=== PATIENT | female | born 1965 | race Caucasian/White ===

== ENCOUNTER 2018-09-16 01:16 | Outpatient (CLI) | payer BC, SELFPAY ==
--- NOTE | 2018-09-16 08:30 | DI.MAMMO_ITS ---
SYMPTOM/DIAGNOSIS: SCREENING, Z12.31 MAMMOGRAMS: Mammograms were interpreted according to the usual protocol including computer analysis with CAD system, tomosynthesis and C view imaging. The breast tissue is of moderate radiodensity. There is no evidence of a dominant mass. There are no suspicious calcifications and nothing specific to suggest a malignancy. There has been no significant interval change when compared with 05/26/07. Breast density, Category B. SA ASSESSMENT OF FINDINGS: Negative. Category 1. Patient will receive a letter notifying them of these results. BI-RADS category B. There are scattered areas of fibroglandular density. ADDENDUM: The patient's prior examination from 05/26/07 was retrieved. Since the prior study, there has been considerable fatty replacement in the breasts. There is no evidence on the present examination of a malignancy. Category I. Follow up surveillance with routine annual screening mammography is recommended.
[2018-09-16 09:39] LABS: Anion Gap 8.3 mmol/L (3-11); BUN 20 mg/dL (7-18); CO2 29.7 mmol/L (21.0-32.0); CREATININE 0.93 mg/dL (0.55-1.02); Calcium 9.4 mg/dL (8.5-10.1); Chloride 105 mmol/L (98-107); Cholesterol 189 mg/dL (50-200); Glucose 91 mg/dL (70-100); HDL Cholesterol 77 mg/dL (40-60); LDL CHOLESTEROL 100 mg/dL (<100); Potassium 4.5 mmol/L (3.5-5.1); Sodium 143 mmol/L (136-145); Triglyceride 55 mg/dL (30-150)
[2018-09-16 09:55] LABS: FREE T4 1.04 ng/dL (0.76-1.46)
== END 2018-09-16 01:36 ==
PROVIDERS: PCP Nurse Practitioner Family; Visit Provider Nurse Practitioner Family
DX: Z12.31 Encounter for screening mammogram for malignant neoplasm of breast (principal); E78.5 Hyperlipidemia, unspecified
CPT/HCPCS: 36415; 77063; 77067; 80048; 80061; 83721; 83036; 84439; 84443

== ENCOUNTER 2024-08-25 10:42 | Outpatient (REF) | payer OTHER, SELFPAY ==
[2024-08-25 15:36] LABS: Abs Immature Grans 0.01 10^3/uL (0.0-0.06); Absolute Basophil Count 0.03 10^3/uL (0.0-0.2); Absolute Eosinophil Count 0.13 10^3/uL (0.0-0.7); Absolute Lymphocyte Count 2.09 10^3/uL (1.2-3.4); Absolute Monocyte Count 0.41 10^3/uL (0.1-0.8); Absolute Neutrophil Count 3.53 10^3/uL (1.2-6.7); Basophils % 0.5 %; Eosinophils % 2.1 %; HCT 44.4 % (36.0-46.0); HGB 14.1 g/dL (11.2-15.7); Immature Grans % 0.2 %; Lymphocytes % 33.7 %; MCH 29.3 pg (27.0-33.0); MCHC 31.8 % (32.0-36.0); MCV 92 fL (80-95); MPV 10.6 fL (8.0-11.0); Monocytes % 6.6 %; Neutrophils % 56.9 %; Platelet Count 278 10^3/uL (130-400); RBC 4.81 10^6/uL (3.93-5.22); RDW 12.8 % (11.7-14.6); RDW-SD 43.7 fL
[2024-08-25 16:36] LABS: ALT 44 U/L (14-59); AST 25 U/L (15-37); Albumin 4.5 g/dL (3.4-5.0); Alkaline Phosphatase 97 U/L (46-116); Anion Gap 8.3 mmol/L (3-11); BUN 20 mg/dL (7-18); Bilirubin, Total 0.52 mg/dL (0.2-1.0); CO2 28.7 mmol/L (21.0-32.0); CREATININE 0.8 mg/dL (0.55-1.02); Calcium 10.1 mg/dL (8.5-10.1); Calculated LDL 113 mg/dL (<100); Chloride 105 mmol/L (98-107); Cholesterol 228 mg/dL (<200); Estimated GFR 83.78 (mL/min/1.73m2); Glucose 88 mg/dL (74-106); HDL Cholesterol 86 mg/dL (40-60); Sodium 142 mmol/L (136-145); TSH 3.33 uIU/mL (0.36-3.74); Total Protein 7.9 g/dL (6.4-8.2); Triglyceride 145 mg/dL (<150)
[2024-08-25 18:17] LABS: Hemoglobin A1C 5.7 % (<5.7)
[2024-08-25 22:39] LABS: CRP, High Sensitivity >15.00 mg/L (See Note)
== END 2024-08-25 10:43 | disposition home or self-care (01) ==
LOC: NCHCN 10:42
PROVIDERS: Visit Provider Family Medicine
DX: R07.9 Chest pain, unspecified (principal)
CPT/HCPCS: 80053; 80061; 86141; 83036; 84443; 85025

== ENCOUNTER 2024-09-17 00:12 | Outpatient (CLI) | payer OTHER, SELFPAY ==
--- NOTE | 2024-09-17 07:30 | DI.US_ITS ---
APPROVED REPORT EXAM: Comprehensive 2D, Doppler, and color-flow Echocardiogram Patient Location: Out-Patient Tours Captain: Hemant Headley RDCS (AE) Indications: Chest pain Conclusion Normal left ventricular wall thickness and chamber size. Ejection fraction is 60%. Wall motion is n ormal Normal right ventricular size and function Both atria are normal in size There is no structural or hemodynamically significant valvular disease Estimated right ventricular systolic pressure is 34 mmHg Wall motion Left Ventricle The left ventricle is normal size. The left ventricular systolic function is normal. The left ventric ular ejection fraction is within the normal range. There is normal left ventricular wall thickness. T here is normal LV segmental wall motion. There is no ventricular septal defect visualized. LVEF is 60 %. Right Ventricle The right ventricle is normal size. The right ventricular systolic function is normal. Atria The left atrium size is normal. The right atrium size is normal. The interatrial septum is intact wit h no evidence for an atrial septal defect. Aortic Valve The aortic valve is normal in structure. Aortic valve is trileaflet. There is no aortic valvular sten osis. No aortic regurgitation is present. Mitral Valve The mitral valve is normal in structure. No evidence of mitral valve stenosis. Trace mitral regurgita tion. Tricuspid Valve The tricuspid valve is normal in structure. There is no tricuspid valve stenosis. Trace tricuspid reg urgitation. The RVSP is 34.2 mmHg. Pulmonic Valve The pulmonary valve is normal in structure. There is no pulmonic valvular stenosis. Trace pulmonic re gurgitation. Great Vessels The aortic root is normal in size. The ascending aorta is normal in size. Aortic arch is normal in ca liber. IVC is normal in size and collapses >50% with inspiration. Pericardium There is no pericardial effusion. 2D Dimensions IVSD d PLAX 0.99 cm F: 0.6-1.0 Ao Root d 2.79 cm F: 2.7 - 3.3 LVPW d PLAX 0.99 cm F: 0.6 - 1.0 Ao Asc Diam d 3.17 cm F: 2.3 - 3.1 LVID d PLAX 5.22 cm F: 3.8 - 5.2 LVDs 3.73 cm F: 2.2 - 3.5 LV EF Teichholz 54.9 % FS 28.69 % LV EDV (Teich) 130.9 mL LV ESV (Teich) 59.1 mL Stroke Vol Index (Teich) 34.37 M-Mode TAPSE 2.50 cm (M/F) >1.7 Auto EF LV EDV A4C 86.1 mL LV EDV A2C 88.9 mL LV EDV BP 88.2 mL LV ESV A4C 37.6 mL LV ESV A2C 37.0 mL LV ESV BP 37.1 mL LVEF(%) A4C 56.3 % LVEF(%) A2C 58.4 % LVEF(%) BP 57.9 % LV SV A4C 48.5 ml LV SV A2C 52.0 ml LV SV BP 51.1 ml LV CO A4C 3.9 L/min LV CO A2C 3.9 L/min LV CO BP 3.9 L/min HR A4C 80.18 BPM HR A2C 75.13 BPM LV EDV Index (BP) LA Volume LA Length A4C 4.5 cm LA Length A2C 4.4 cm LA Area A4C s 10.42 cm2 LA Area A2C s 10.80 cm2 LA Vol A4C A-L 20.42 mL LA Vol A2C A-L 22.49 mL LA Vol Biplane A-L 21.7 mL LA Vol/BSA A4C A-L LA Vol/BSA A2C A-L LA Vol/BSA BP A-L 10.4 mL/m2 LA Vol A4C MOD 19.1 mL LA Vol A2C MOD 21.2 mL LA Vol BP MOD 20.3 mL RA Volume RA Area A4C 7.7 cm2 RA ESV A4C (A-L) 14.3mL RA Vol/BSA A4C A-L RA Length A4C 3.5 cm RA ESV A4C (MOD) 13.7mL LV Diastology MV E' medial 0.072 (>0.07 m/s) MV E Vmax 0.84 (0.4-1.3 m/s) MV E/E' MED 11.75 (<14) MV A Vmax 0.90 (0.4-1.3 m/s) MV E' lateral 0.086 (>0.1 m/s) E/A Ratio 0.9 MV E/E' LAT 9.78 (<14) MV E' Average 0.079 m/s MV E/E'(average) 10.67 Aortic Valve AoV Vmax 1.36 m/s LVOT Vmax 1.03 m/s AoV Peak Grad 7.4 mmHg LVOT Peak Grad 4.3 mmHg AoV Area (Vmax) 2.24 cm2 LVOT VTI 0.259 m AoV VTI 0.331 m LVOT Mean Grad 2.4 mmHg AoV Mean Davidson. 0.99 m/s LVOT SV 76.78 mL AoV Mean Grad 4.4 mmHg LVOT Diam s 1.90 cm AoV Area (VTI) 2.32 cm2 AV Regurg Peak Gr. 7.41 mmHg Velocity Ratio 0.76 Mitral Valve MV DT 173 (160-240 msec) MV Vmax TIPS 1.07 m/s MV Mean Grad 2.0 (<2mmHg) MV VTI 0.309 m Pulmonary Valve PV Vmax 0.74 (0.5-1.5 m/s) RVOT Vmax 0.61 m/s PV Peak Grad 2.2 mmHg RVOT Peak Gr. 1.5 mmHg PV Mean Davidson 0.55 m/s RVOT VTI 0.143 m PV Mean Grad 1.3 mmHg RVOT Mean Gr. 0.9 mmHg Tricuspid Valve RA Pressure 3.00 mmHg TR Vmax 2.79 m/s TV S' 0.12 m/s TR Peak Grad 31.1 mmHg RVSP (TR) 34.2 mmHg
== END 2024-09-17 00:32 ==
PROVIDERS: PCP Family Medicine; Visit Provider Internal Medicine Cardiovascular Disease
DX: R07.9 Chest pain, unspecified (principal)
CPT/HCPCS: 93306

== ENCOUNTER 2024-10-07 00:49 | Outpatient (CLI) | payer OTHER, SELFPAY ==
--- NOTE | 2024-10-07 | ETT_ITS ---
APPROVED REPORT Exam: Exercise Treadmill Patient Location: Out-Patient Room/Bed: Stress Nurse: Becky Huff RN Ordering Provider:VAN MANSOOR, Contact Number: [phone] BMI: 36.47 Baseline Rhythm: Sinus Rhythm Indications: Angina Pectoris, HTN, HLD, elevated Hscrp, Medical History Medical History: HTN, HLD, GERD, low back pain Cardiac Medications: Losartan, atorvastatin, metoprolol succinate ER, magnesium, aspirin Allergies: Penicillins, pineapple extract Cardiac Risk Factors: Family hx, HTN, HLD, obesity Previous Cardiac Procedures: None Pretest Chest Pain Characteristics: None Exercise History: Sedentary Physical Disabilities: None Lung Sounds: Clear to auscultation Heart Sounds: Regular Stress Test Details Test: Exercise stress testing was performed using a João protocol. Rest Stress HR Resting HR Supine: 77 bpm Max Heart Rate (APMHR): 159 bpm Resting HR Standin bpm Target HR (85% APMHR): 135 bpm Max HR Achieved: 138 bpm % of APMHR: 87 Recovery HR: 97 bpm HR response to stress: Accelerated HR response to stress BP Resting BP Supine: 150/80 mmHg Resting BP Standin/82 mmHg Max BP: 212/84 mmHg Recovery BP: 168/88 mmHg BP response to stress: Abnormal hypertensive response to stress. ECG Resting ECG: Sinus Rhythm Stress ECG: Sinus Tachycardia ST Change: No significant ST segment changes noted Arrhythmia: Occasional PVC's, ?IVCD Recovery ECG: Sinus Rhythm Recovery ST Change: No significant ST segment changes noted Recovery Arrhythmia: Occasional PVC's, rare PAC's, ?IVCD Clinical Reason for Termination: Target HR Achieved, Mod SOB, artifiact Stress Symptoms: Mod SOB Exercise duration: 02 min29 sec Highest Stage Reached: Stage 1: 1.7 mph at 10% grade. Exercise capacity: 4.64 METs Angina Score: None Fleming Treadmill Score: 1.8 Rate Pressure Product: [id number] Stress ECG Conclusion 1. Resting electrocardiogram showed low voltage late transition 2. Patient exercised on the João protocol. There was poor exercise capacity of 4 METS limited by dy spnea 3. Accelerated heart rate response to exercise. The patient achieved 87% of maximal predicted heart rate for age. Mildly hypertensive blood pressure response to activity 4. Patient developed an interventricular conduction delay during exercise which rendered the electroc ardiographic portion of the test nondiagnostic 5. Atrial premature beats were noted Fleming Treadmill Score is 1.8 which is Moderate risk. Stress Test Summary STAGE Time (mins) Speed (mph) Grade (%) HR BP SpO2 SYMPTOMS METS Supine 77 150/88 95% Standing 76 148/82 1 3 1.7 10 138 Mod SOB 4.5 1 min recovery 112 212/84 3 min recovery 103 198/80 6 min recovery 97 168/88 97% All symptoms resolved. EKG reviewed by Dr. Krishnamurthy, ? IVCD. Patient ok to leave. All symptoms resolved at test end. Patient lef t ambulatory in no apparent distress.
== END 2024-10-07 01:09 ==
LOC: DI 00:50
PROVIDERS: PCP Family Medicine; Visit Provider Internal Medicine Cardiovascular Disease
DX: I20.9 Angina pectoris, unspecified (principal); R07.9 Chest pain, unspecified
CPT/HCPCS: 93017

== ENCOUNTER 2024-10-08 11:00 | Outpatient (CLI) | payer OTHER, SELFPAY ==
--- NOTE | 2024-10-08 11:00 | RT.EKG_ITS ---
APPROVED REPORT Exam: Resting ECG Reason for Exam: baseline Patient Location: O HR:78 bpm ECG Measurements Heart Rate 78 AXIS GA 151 P 45 QRSd 85 QRS -1 QT 390 T 45 QTc 445 Conclusion Sinus rhythm...normal P axis, V-rate 50- 99 Normal Electrocardiogram
== END 2024-10-08 11:01 | disposition home or self-care (01) ==
LOC: DI.CARD 11:00
PROVIDERS: PCP Family Medicine; Visit Provider Internal Medicine Cardiovascular Disease
DX: I10 Essential (primary) hypertension (principal)
CPT/HCPCS: 93010

== ENCOUNTER 2024-11-15 02:29 | Outpatient (CLI) | payer OTHER, SELFPAY ==
--- NOTE | 2024-11-15 06:30 | DI.NM_ITS ---
APPROVED REPORT Exam: Pharmacologic Patient Location: Out-Patient Room/Bed: Stress Nurse: Ophelia Spangler RN Ordering Provider:DARIO PAZ, Contact Number: BMI: 33.90 Baseline Rhythm: Sinus Rhythm Indications: atypical CP Medical History Medical History: HTN, HLD, prediabetes, BPPV, chronic lower back pain, obesity Cardiac Medications: aspirin, atorvastatin, epipen, claritin, magnesium, metoprolol succinate Allergies: PCNS, pineapple, sanchez, perfume Cardiac Risk Factors: family hx, prediabetes, HTN, HLD, obesity Previous Cardiac Procedures: none Pretest Chest Pain Characteristics: No chest pain Exercise History: Indeterminate Physical Disabilities: n/a Lung Sounds: Clear to auscultation Heart Sounds: Regular Stress Test Details Test: Pharmacologic stress was paired with low level exercise. Reason for pharmacologic stress test: beta armani. Nuclear Acquisition: Rest Tc-99m/Stress Tc-99m 1 day Rest Isotope: Tc-99m Sestamibi. Dose: 11.0 Date: 11/15/2024 Injection Time: 0855 Stress Isotope: Tc-99m Sestamibi. Dose: 36.0 Date: 11/15/2024 Injection Time: 1015 HR Resting HR Supine: 67 bpm Max Heart Rate (APMHR): 159 bpm Resting HR Standin bpm Target HR (85% APMHR): 135 bpm Max HR Achieved: 117 bpm % of APMHR: 74 Recovery HR: 87 bpm BP Resting BP Supine: 118/80 mmHg Resting BP Standin/90 mmHg Max BP: 160/72 mmHg Recovery BP: 128/78 mmHg ECG Resting ECG: Sinus Rhythm Ectopy: none Stress ECG: Sinus Tachycardia ST Change: Nondiagnostic low heart rate Arrhythmia: None Recovery ECG: Sinus Rhythm Recovery ST Change: Nondiagnostic low heart rate Recovery Arrhythmia: rare PACs Clinical Stress Symptoms: none Angina Score: None Rate Pressure Product: [id number] Stress ECG Conclusion 1. Resting electrocardiogram showed low voltage but was otherwise normal 2. Patient underwent testing using pharmacologic stress with regadenoson 3. Peak heart rate achieved was 74% of maximal predicted for age 4. The electrocardiographic portion of the test was nondiagnostic 5. There were no significant dysrhythmias 6. See MPI report Stress Test Summary STAGE HR BP SpO2 Symptoms NOTES Supine 67 118/80 99 Standing 72 128/90 1 min post Lexiscan injection 96 140/78 100 3 min post Lexiscan injection 94 160/72 98 6 min post Lexiscan injection 87 128/78 MPI Conclusion Myocardial perfusion is normal. There is no ischemia or evidence of prior infarction Ejection fraction is 69% with normal wall motion
[2024-11-15] MEDS: Regadenoson 0.4 MG/5 ML SYR IVP (10:15)
== END 2024-11-15 02:49 ==
LOC: DI 02:29
PROVIDERS: PCP Family Medicine; Visit Provider Internal Medicine Cardiovascular Disease
DX: R07.89 Other chest pain (principal)
CPT/HCPCS: 78452; 93017; J2785

== ENCOUNTER 2024-12-07 16:56 | Outpatient (REF) | payer OTHER, SELFPAY ==
[2024-12-07 21:17] LABS: ALT 54 U/L (14-59); AST 29 U/L (15-37); Albumin 4.2 g/dL (3.4-5.0); Alkaline Phosphatase 93 U/L (46-116); Anion Gap 6.2 mmol/L (3-11); BUN 20 mg/dL (7-18); Bilirubin, Total 0.8 mg/dL (0.2-1.0); CO2 30.8 mmol/L (21.0-32.0); Calcium 9.4 mg/dL (8.5-10.1); Calculated LDL 39 mg/dL (<100); Chloride 106 mmol/L (98-107); Cholesterol 116 mg/dL (<200); Estimated GFR 64.09 (mL/min/1.73m2); Glucose 110 mg/dL (74-106); HDL Cholesterol 57 mg/dL (>or=50); Potassium 3.8 mmol/L (3.5-5.1); Sodium 143 mmol/L (136-145); Total Protein 7.3 g/dL (6.4-8.2); Triglyceride 101 mg/dL (<150)
== END 2024-12-07 16:57 | disposition home or self-care (01) ==
LOC: NCHCN 16:56
PROVIDERS: PCP Family Medicine; Visit Provider Family Medicine
DX: E78.5 Hyperlipidemia, unspecified (principal)
CPT/HCPCS: 80053; 80061